=== PATIENT | male | born 1955 | race Two or more races ===

== ENCOUNTER 2016-09-01 12:37 | Inpatient (IN) | payer OTHER ==
[2016-09-01 17:49] VITALS: BMI 19.6
--- NOTE | 2016-09-01 18:57 | HP ---
COWS - Scale Resting Pulse: 0= [place] 80 or Below Sweatin=Flushed/Facial Moisture Restless Observation: 1= Difficult to Sit Still Pupil Size: 0= Normal to Room Light Bone or Joint Aches: 2= Severe Diffuse Aches Runny Nose/ Eye Tearin= Runny Nose/Eyes GI Upset > 30mins: 1= Stomach Cramp Tremor Observation: 2= Slight Tremor Visible Yawning Observation: 2= >3x During Session Anxiety or Irritability: 1=Feels Anxious/Irritable Goose Flesh Skin: 3=Piloerection COWS Score: 16 Admission ROS S - HPI Chief Complaint: WITHDRAWAL SYMPTOMS Allergies/Adverse Reactions: Allergies Allergy/AdvReac Type Severity Reaction Status Date / Time No Known Allergies Allergy Verified 09/01/16 18:05 History of Present Illness: 61 Y.O. MAN WITH A HISTORY OF HEROIN DEPENDENCE IS HERE SEEKING DETOX. HE REPORTS BEING CLEAN FOR 45 YEARS BUT RELAPSED 2 YEARS AGO. HE WAS LAST HERE FOR DETOX IN 2014. Exam Limitations: No Limitations - Ebola screening Have you traveled outside of the country in the last 21 days: No Have you had contact with anyone from an Ebola affected area: No Have you been sick,other than usual withdrawal symptoms: No Do you have a fever: No - Review of Systems Constitutional: Chills, Diaphoresis, Loss of Appetite, Malaise, Night Sweats, Changes in sleep EENT: reports: Blurred Vision, Tearing Respiratory: reports: Shortness of Breath Cardiac: reports: No Symptoms Reported GI: reports: Abdominal cramping : reports: No Symptoms Reported Musculoskeletal: reports: Joint Pain Integumentary: reports: No Symptoms Reported Neuro: reports: Numbness (TO RIGHT FINGER TIPS AND RIGHT FOOT) Endocrine: reports: No Symptoms Reported Hematology: reports: No Symptoms Reported Psychiatric: reports: Judgement Intact, Mood/Affect Appropiate, Anxious Other Systems: Reviewed and Negative Patient History - Patient Medical History Hx Anemia: No Hx Asthma: Yes Hx Chronic Obstructive Pulmonary Disease (COPD): No Hx Cancer: No Hx Cardiac Disorders: No Hx Congestive Heart Failure: No Hx Hypertension: No Hx Hypercholesterolemia: No Hx Pacemaker: No HX Cerebrovascular Accident: No Hx Seizures: No Hx Dementia: No Hx Diabetes: No Hx Gastrointestinal Disorders: No Hx Liver Disease: No Hx Genitourinary Disorders: No Hx Sexually Transmitted Disorders: Yes (Gonorrhea-treated) Hx Renal Disease (ESRD): No Hx Thyroid Disease: No Hx Human Immunodeficiency Virus (HIV): No Hx Hepatitis C: Yes (UNTREATED ) Hx Depression: No Hx Suicide Attempt: No Hx Bipolar Disorder: No Hx Schizophrenia: No - Patient Surgical History Past Surgical History: Yes Hx Neurologic Surgery: No Hx Cataract Extraction: No Hx Cardiac Surgery: No Hx Lung Surgery: No Hx Breast Surgery: No Hx Breast Biopsy: No Hx Abdominal Surgery: No Hx Appendectomy: No Hx Cholecystectomy: No Hx Genitourinary Surgery: No Hx Section: No Hx Orthopedic Surgery: Yes (Tibia fx repair in 2013; tonsillectomy at 6 y.o. ) Other Surgical History: Bilateral inguinal hernia repair at 18 y.o. Anesthesia Reaction: No - PPD History Previous Implant?: Yes Documented Results: Negative w/proof Implanted On Prior [facility] Admission?: Yes Date: 08/08/14 Results: 0 PPD to be Administered?: Yes - Reproductive History Patient is a Female of Child Bearing Age (11 -55 yrs old): No - Smoking Cessation Smoking history: Current every day smoker Have you smoked in the past 12 months: Yes Aproximately how many cigarettes per day: 10 Hx Chewing Tobacco Use: Yes Initiated information on smoking cessation: No 'Breaking Loose' booklet given: 09/01/16 - Substance & Tx. History Hx Alcohol Use: No Hx Substance Use: Yes Substance Use Type: Heroin Hx Substance Use Treatment: Yes (Last detox was here in 2014) - Substances Abused Heroin Route: Inhalation Frequency: Daily Amount used: 12 bags Age of first use: 12 Date of Last Use: 09/01/16 Family Disease History - Family Disease History Family Disease History: CA: Father ( ), Respiratory: Sister (asthma), Other: Son (Lupus ) Admission Physical Exam BHS - Vital Signs Vital Signs: Vital Signs - 24 hr 09/01/16 17:46 Temperature 97.5 F L Pulse Rate 67 Respiratory 18 Rate Blood Pressure 124/77 - Physical General Appearance: Yes: No Apparent Distress, Nourished, Appropriately Dressed HEENTM: Yes: Hearing grossly Normal, Normocephalic, Normal Voice Respiratory: Yes: Chest Non-Tender, Lungs Clear, Normal Breath Sounds, No Respiratory Distress, No Accessory Muscle Use Neck: Yes: No masses,lesions,Nodules, Trachea in good position Breast: Yes: Breast Exam Deferred Cardiology: Yes: Regular Rhythm, Regular Rate Abdominal: Yes: Non Tender, Flat, Soft Genitourinary: Yes: Other (NO COMPLAINTS REPORTED) Back: Yes: Normal Inspection Musculoskeletal: Yes: Back pain Extremities: Yes: Normal Inspection, Normal Range of Motion, Non-Tender Neurological: Yes: Fully Oriented, Alert, Normal Mood/Affect, Normal Response Integumentary: Yes: Normal Color, Dry, Warm Lymphatic: Yes: Within Normal Limits - Diagnostic (1) Asthma Current Visit: Yes Status: Chronic (2) Opioid dependence with withdrawal Current Visit: Yes Status: Chronic (3) Hepatitis C Current Visit: Yes Status: Chronic (4) BPH (benign prostatic hyperplasia) Current Visit: Yes Status: Chronic (5) Sciatica Current Visit: Yes Status: Chronic Cleared for Admission [facility] - Detox or Rehab [facility] Level of Care: Medically Managed Detox Regimen/Protocol: Methadone [facility] Breath Alcohol Content Breath Alcohol Content: 0 Urine Drug Screen - Results Drug Screen Negative: No Urine Drug Screen Results: THC-Marijuana, LUCY-Cocaine, OPI-Opiates
[2016-09-01] MEDS ORDERED: MAGNESIUM CITRATE 300 ML BOTTLE PO PRN (19:09)
[2016-09-01] MEDS ORDERED: MAG HYDROX/AL HYDROX/SIMETH 30 ML UNIT-DOSE CUP PO PRN (19:09)
[2016-09-01] MEDS ORDERED: hydrOXYzine PAMOATE 50 MG CAPSULE (FP) PO PRN (19:09)
[2016-09-01] MEDS ORDERED: MENTHOL/PHENOL 1 EACH UD MM PRN (19:09)
[2016-09-01] MEDS ORDERED: guaiFENesin/D-METHORPHAN HB 10 ML UNIT-DOSE CUPS PO PRN (19:09)
[2016-09-01] MEDS ORDERED: NICOTINE POLACRILEX 2 MG GUM BC PRN (19:09)
[2016-09-01] MEDS ORDERED: LOPERAMIDE HCL 2 MG CAPSULE PO PRN (19:09)
[2016-09-01] MEDS ORDERED: P-EPHED 60MG/TRIPROLIDI 2.5MG TABLET PO PRN (19:09)
[2016-09-01] MEDS ORDERED: MAGNESIUM HYDROX 2400MG/30ML ORAL SUSPENSION 30 ML CUP PO PRN (19:09)
[2016-09-01] MEDS ORDERED: METHADONE HCL 10 MG TABLET (FOR DETOX USE ONLY) PO ONE ×2 (19:09→23:00)
[2016-09-01] MEDS ORDERED: cloNIDine HCL 0.1 MG TABLET PO PRN (19:13)
[2016-09-01] MEDS ORDERED: ALBUTEROL SO4 2.5/IPRATROPIUM 0.5 INH SOL 3 ML VIAL.NEB. NEB PRN (19:14)
[2016-09-01] MEDS: diazePAM 5 MG TABLET PO PRN (20:14)
[2016-09-01] MEDS: THIAMINE HCL 100 MG TABLET (FP) PO SCH (22:14)
[2016-09-01] MEDS: diphenhydrAMINE HCL 50 MG CAPSULE PO PRN (22:14)
[2016-09-01] MEDS: MONTELUKAST NA 10 MG TABLET PO SCH (22:14)
[2016-09-02] MEDS: diazePAM 5 MG TABLET PO PRN ×4 (05:13→22:18)
[2016-09-02] MEDS ORDERED: ALBUTEROL SO4 2.5/IPRATROPIUM 0.5 INH SOL 3 ML VIAL.NEB. NEB SCH (08:45)
--- NOTE | 2016-09-02 09:38 | PN ---
BHS COWS - Scale Resting Pulse: 0= [place] 80 or Below Sweatin= Chills/Flushing Restless Observation: 3= Extraneous Movement Pupil Size: 0= Normal to Room Light Bone or Joint Aches: 4=Acute Joint/Muscle Pain Runny Nose/ Eye Tearin= Nasal Congestion GI Upset > 30mins: 1= Stomach Cramp Tremor Observation of Outstretched Hands: 1= Tremor [place], Not Seen Yawning Observation: 2= >3x During Session Anxiety or Irritability: 2=Irritable/Anxious Goose Flesh Skin: 0=Smooth Skin COWS Score: 15 BHS Progress Note (SOAP) Subjective: ANXIETY,IRRITABILITY,SOB/WHEEZE. Objective: 09/02/16 09:41 Vital Signs Temperature 97.3 F L 09/02/16 05:51 Pulse Rate 66 09/02/16 05:51 Respiratory Rate 18 09/02/16 05:51 Blood Pressure 95/62 09/02/16 05:51 O2 Sat by Pulse Oximetry (%) LABS PENDING LUNGS; BILATERAL WHEEZE WITH VERY MILD RHONCHI. Assessment: 09/02/16 09:42 WITHDRAWAL SX ASTHMA EXACERBATION Plan: WITHDRAWAL SX DUONEB/SYMBICORT TX DIRECTED ALBUTEROL INHALER PRN
[2016-09-02] MEDS: BUDESONIDE/FORMETEROL FUMARATE 160/4.5 mcg INHALER IH SCH ×2 (09:55→22:18)
[2016-09-02] MEDS: NICOTINE 7 MG/24 HOURS TOPICAL PATCH TD SCH (09:56)
[2016-09-02] MEDS: ASPIRIN COATED 81 MG TABLET.EC PO SCH (09:56)
[2016-09-02] MEDS: PRENATAL VITAMINS W/ FOLIC ACID TABLET (FP) PO SCH (09:56)
[2016-09-02] MEDS ORDERED: METHADONE HCL 10 MG TABLET (FOR DETOX USE ONLY) PO ONE (10:00)
[2016-09-02] MEDS ORDERED: PATIENT'S OWN MEDICATION (NON-FORMULARY) (Fluticasone Propionate [Flovent Hfa] 110 MCG) IH SCH (10:00)
[2016-09-02 10:25] LABS: MCH 29.5 pg (25.7-33.7); MEAN CELL VOLUME 89.5 fl (80-96); MEAN PLT VOLUME 8.4 fl (7.5-11.1); PLATELET COUNT 212 K/MM3 (134-434); WHITE BLOOD COUNT 5.4 K/mm3 (4.0-10.0)
[2016-09-02 10:29] LABS: ALBUMIN 3.4 g/dl (3.4-5.0); ANION GAP 6 (8-16); BILIRUBIN,TOTAL 0.4 mg/dL (0.2-1.0); CO2 27 mmol/L (21-32); CREATININE 0.8 mg/dL (0.7-1.3); GLUCOSE,RANDOM 88 mg/dL (74-106); SGOT/AST 98 U/L (15-37); SGPT/ALT 94 U/L (12-78)
[2016-09-02 10:30] LABS: ALK PHOS 79 U/L (45-117)
--- NOTE | 2016-09-02 11:10 | EKG ---
Test Reason : Blood Pressure : / mmHG Vent. Rate : 065 BPM Atrial Rate : 065 BPM P-R Int : 158 ms QRS Dur : 090 ms QT Int : 416 ms P-R-T Axes : 072 078 075 degrees QTc Int : 432 ms NORMAL SINUS RHYTHM POSSIBLE LEFT ATRIAL ENLARGEMENT BORDERLINE ECG NO PREVIOUS ECGS AVAILABLE Confirmed by CALLI GARCIA, ANTONIO ([id number]) on 09/02/2016 11:09:41 AM Referred By: Confirmed By:ANTONIO MCCURDY MD
--- NOTE | 2016-09-02 11:21 | CONSULT ---
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 Substance Abuse History: Patient admits to relapsing into heroin abuse two years ago after 45 years of sobriety (started at age 12 and stopped at 15 when he fathered his first child).Uses 12 bags daily (snorting).Smokes 1/2 pack of cigarettes daily.Used substances on 09/01/16. Medical History: Remarkable for a history of gonorrhea,hepatitis C (treated), benign prostatic hyperplasia,colitis and bronchial asthma.Noted history of orthosurgery for fracture of tibia (2013),tonsillectomy and bilateral inguinal herniorraphy (age 18). Psychiatric History: Patient denies. Physical/Sexual Abuse/Trauma History: Patient denies. Additional Comment: Urine Drug Screen Results: THC-Marijuana, LUCY-Cocaine, OPI- Opiates.Noted from [facility] report. Mental Status Exam - Mental Status Exam Alert and Oriented to: Time, Place Cognitive Function: Good Patient Appearance: Well Groomed Mood: Hopeful, Euthymic Affect: Appropriate, Normal Range Patient Behavior: Appropriate (pleasant), Cooperative Speech Pattern: Clear, Appropriate Voice Loudness: Normal Thought Process: Intact, Goal Oriented Thought Disorder: Not Present Hallucinations: Denies Suicidal Ideation: Denies Homicidal Ideation: Denies Insight/Judgement: Poor Sleep: Poorly, Difficulty falling asleep Appetite: Good Muscle strength/Tone: Normal Gait/Station: Normal Psychiatric Findings - Problem List ([place] 1, 2,3) (1) Opioid dependence with withdrawal Current Visit: Yes Status: Acute (2) Marihuana abuse Current Visit: Yes Status: Acute (3) Nicotine dependence Current Visit: Yes Status: Acute (4) Asthma Current Visit: Yes Status: Chronic (5) BPH (benign prostatic hyperplasia) Current Visit: Yes Status: Chronic (6) Hepatitis C Current Visit: Yes Status: Chronic (7) Sciatica Current Visit: Yes Status: Chronic (8) Insomnia Current Visit: Yes Status: Acute - Initial Treatment Plan Initial Treatment Plan: Psychoeducation is well received by patient in this session.[facility] report reviewed.Detoxification in progress.Insomnia is addressed, with patient's consent,with zolpidem 10 mg po hs (no script will be issued at discharge).Patient made aware of the potential for parasomnias.Observation.
[2016-09-02] MEDS: ALBUTEROL SO4 2.5/IPRATROPIUM 0.5 INH SOL 3 ML VIAL.NEB. NEB SCH ×4 (15:14→22:51)
[2016-09-02 16:39] LABS: HIV 1 & 2 AB NEGATIVE; HIV 1 AGp24 NEGATIVE
[2016-09-02] MEDS: ALBUTEROL SO4 6.7 GM HFA INHALER IH PRN (17:28)
[2016-09-02] MEDS: diphenhydrAMINE HCL 50 MG CAPSULE PO PRN (22:18)
[2016-09-02] MEDS: THIAMINE HCL 100 MG TABLET (FP) PO SCH (22:18)
[2016-09-02] MEDS: MONTELUKAST NA 10 MG TABLET PO SCH (22:18)
[2016-09-02 23:22] LABS: URINE APPEARANCE CLEAR; URINE BILIRUBIN NEGATIVE (NEGATIVE); URINE BLOOD NEGATIVE (NEGATIVE); URINE COLOR AMBER; URINE GLUCOSE (UA) NEGATIVE (NEGATIVE); URINE KETONE TRACE (NEGATIVE); URINE LEUK ESTERASE NEGATIVE (NEGATIVE); URINE NITRITE NEGATIVE (NEGATIVE); URINE PROTEIN NEGATIVE (NEGATIVE); URINE UROBILINOGEN 4.0 E.U/dl mg/dL (0.2-1.0)
[2016-09-03] MEDS: IBUPROFEN 400 MG TABLET (FP) PO PRN ×2 (05:49→22:24)
[2016-09-03] MEDS: diazePAM 5 MG TABLET PO PRN ×2 (05:50→22:25)
[2016-09-03] MEDS ORDERED: METHADONE HCL 5 MG TABLET (FOR DETOX USE ONLY) PO ONE (10:00)
[2016-09-03] MEDS: ALBUTEROL SO4 6.7 GM HFA INHALER IH PRN ×2 (10:21→22:20)
[2016-09-03] MEDS: PRENATAL VITAMINS W/ FOLIC ACID TABLET (FP) PO SCH (10:21)
[2016-09-03] MEDS: ASPIRIN COATED 81 MG TABLET.EC PO SCH (10:21)
[2016-09-03] MEDS: BUDESONIDE/FORMETEROL FUMARATE 160/4.5 mcg INHALER IH SCH ×2 (10:22→22:23)
[2016-09-03] MEDS: NICOTINE 7 MG/24 HOURS TOPICAL PATCH TD SCH (10:22)
[2016-09-03] MEDS: ALBUTEROL SO4 2.5/IPRATROPIUM 0.5 INH SOL 3 ML VIAL.NEB. NEB SCH ×5 (10:22→23:05)
[2016-09-03] MEDS: ACETAMINOPHEN 325 MG TABLET (FP) PO PRN (10:24)
[2016-09-03] MEDS ORDERED: LIDOCAINE 5% TOPICAL PATCH TP ONE (10:56)
[2016-09-03] MEDS ORDERED: CYCLOBENZAPRINE HCL 10 MG TABLET (FP) PO PRN (10:58)
--- NOTE | 2016-09-03 10:59 | PN ---
BHS COWS - Scale Resting Pulse: 0= [place] 80 or Below Sweatin= Chills/Flushing Restless Observation: 3= Extraneous Movement Pupil Size: 0= Normal to Room Light Bone or Joint Aches: 4=Acute Joint/Muscle Pain Runny Nose/ Eye Tearin= Nasal Congestion GI Upset > 30mins: 1= Stomach Cramp Tremor Observation of Outstretched Hands: 2= Slight Tremor Visible Yawning Observation: 2= >3x During Session Anxiety or Irritability: 2=Irritable/Anxious Goose Flesh Skin: 0=Smooth Skin COWS Score: 16 BHS Progress Note (SOAP) Subjective: ANXIETY,SWEATS, HX CHRONIC LOWER BACK PAIN, INTERMITTENT SLEEP. Objective: 09/03/16 10:50 Vital Signs Temperature 96.7 F L 09/03/16 09:49 Pulse Rate 65 09/03/16 09:49 Respiratory Rate 18 09/03/16 09:49 Blood Pressure 135/78 09/03/16 09:49 O2 Sat by Pulse Oximetry (%) Laboratory Last Values WBC 5.4 K/mm3 (4.0-10.0) D 09/02/16 06:30 RBC 4.89 M/mm3 (4.00-5.60) 09/02/16 06:30 Hgb 14.4 GM/dL (11.7-16.9) 09/02/16 06:30 Hct 43.7 % (35.4-49) 09/02/16 06:30 MCV 89.5 fl (80-96) 09/02/16 06:30 MCH 29.5 pg (25.7-33.7) 09/02/16 06:30 MCHC 33.0 g/dl (32.0-35.9) 09/02/16 06:30 RDW 14.0 % (11.9-15.9) 09/02/16 06:30 Plt Count 212 K/MM3 (134-434) 09/02/16 06:30 MPV 8.4 fl (7.5-11.1) 09/02/16 06:30 Sodium 139 mmol/L (136-145) 09/02/16 06:30 Potassium 4.1 mmol/L (3.5-5.1) 09/02/16 06:30 Chloride 106 mmol/L (98-107) 09/02/16 06:30 Carbon Dioxide 27 mmol/L (21-32) 09/02/16 06:30 Anion Gap 6 (8-16) L 09/02/16 06:30 BUN 15 mg/dL (7-18) 09/02/16 06:30 Creatinine 0.8 mg/dL (0.7-1.3) 09/02/16 06:30 Creat Clearance w eGFR > 60 (>60) 09/02/16 06:30 Random Glucose 88 mg/dL (74-106) D 09/02/16 06:30 Calcium 9.0 mg/dL (8.5-10.1) 09/02/16 06:30 Total Bilirubin 0.4 mg/dL (0.2-1.0) D 09/02/16 06:30 AST 98 U/L (15-37) H D 09/02/16 06:30 ALT 94 U/L (12-78) H D 09/02/16 06:30 Alkaline Phosphatase 79 U/L (45-117) 09/02/16 06:30 Total Protein 7.0 g/dl (6.4-8.2) 09/02/16 06:30 Albumin 3.4 g/dl (3.4-5.0) 09/02/16 06:30 Urine Color Poly 09/02/16 22:00 Urine Appearance Clear 09/02/16 22:00 Urine pH 8.0 (5.0-8.0) D 09/02/16 22:00 Ur Specific [place] 1.015 (1.005-1.025) 09/02/16 22:00 Urine Protein Negative (NEGATIVE) 09/02/16 22:00 Urine Glucose (UA) Negative (NEGATIVE) 09/02/16 22:00 Urine Ketones Trace (NEGATIVE) H 09/02/16 22:00 Urine Blood Negative (NEGATIVE) 09/02/16 22:00 Urine Nitrite Negative (NEGATIVE) 09/02/16 22:00 Urine Bilirubin Negative (NEGATIVE) 09/02/16 22:00 Urine Urobilinogen 4.0 e.u/dl mg/dL (0.2-1.0) 09/02/16 22:00 Ur Leukocyte Esterase Negative (NEGATIVE) 09/02/16 22:00 RPR Titer Nonreactive (NONREACTIVE) 09/02/16 06:30 HIV 1&2 Antibody Screen Negative 09/02/16 11:00 HIV P24 Antigen Negative 09/02/16 11:00 Assessment: 09/03/16 10:51 WITHDRAWAL SX Plan: CONTINUE DETOX FLEXERIL DIRECTED NAPROSYN DIRECTED
[2016-09-03] MEDS ORDERED: LIDOCAINE 5% TOPICAL PATCH TP SCH (11:00)
[2016-09-03] MEDS ORDERED: LIDOCAINE PATCH REMOVAL MC SCH ×2 (22:00)
[2016-09-03] MEDS: THIAMINE HCL 100 MG TABLET (FP) PO SCH (22:20)
[2016-09-03] MEDS: MONTELUKAST NA 10 MG TABLET PO SCH (22:21)
[2016-09-03] MEDS: LIDOCAINE PATCH REMOVAL MC SCH (23:53)
[2016-09-04] MEDS: IBUPROFEN 400 MG TABLET (FP) PO PRN (05:32)
[2016-09-04] MEDS: diazePAM 5 MG TABLET PO PRN (05:32)
[2016-09-04] MEDS ORDERED: ONDANSETRON *ODT* 4 MG TABLET SL PRN (06:50)
[2016-09-04] MEDS ORDERED: TRIMETHOBENZAMIDE HCL 200MG/2ML INJ IM PRN (07:26)
[2016-09-04] MEDS: ALBUTEROL SO4 2.5/IPRATROPIUM 0.5 INH SOL 3 ML VIAL.NEB. NEB SCH ×6 (08:05→23:44)
[2016-09-04] MEDS ORDERED: METHADONE HCL 5 MG TABLET (FOR DETOX USE ONLY) PO ONE (10:00)
[2016-09-04] MEDS ORDERED: LIDOCAINE 5% TOPICAL PATCH TP SCH (10:00)
[2016-09-04] MEDS ORDERED: METHADONE DETOX 10 MG/1 ML [20ML VIAL] IM ONE (10:14)
[2016-09-04] MEDS: ASPIRIN COATED 81 MG TABLET.EC PO SCH (10:58)
[2016-09-04] MEDS: BUDESONIDE/FORMETEROL FUMARATE 160/4.5 mcg INHALER IH SCH ×2 (10:58→23:48)
[2016-09-04] MEDS: PRENATAL VITAMINS W/ FOLIC ACID TABLET (FP) PO SCH (10:58)
[2016-09-04] MEDS: NICOTINE 7 MG/24 HOURS TOPICAL PATCH TD SCH (10:59)
[2016-09-04] MEDS ORDERED: diazePAM CARPU-JECT 10 MG/2 ML DISP.SYRIN IM ONE (11:16)
--- NOTE | 2016-09-04 11:20 | PN ---
S Progress Note (SOAP) Subjective: PT C/O SEVERE ABDOMINAL PAIN/CRAMPS, NAUSEA WITH VOMITING SINCE LAST NIGHT. NO C /O DIARRHEA. TIGAN GIVEN WITH MINIMAL RELIEF. STATES HX COLITIS AND FLARES ON/ OFF. Objective: 09/04/16 11:18 Vital Signs 09/04/16 09/04/16 09/04/16 03:30 06:58 09:34 Temperature 97.0 F L 97.7 F Pulse Rate 56 L 55 L Respiratory 18 18 18 Rate Blood Pressure 133/82 172/101 Laboratory Last Values WBC 5.4 K/mm3 (4.0-10.0) D 09/02/16 06:30 RBC 4.89 M/mm3 (4.00-5.60) 09/02/16 06:30 Hgb 14.4 GM/dL (11.7-16.9) 09/02/16 06:30 Hct 43.7 % (35.4-49) 09/02/16 06:30 MCV 89.5 fl (80-96) 09/02/16 06:30 MCH 29.5 pg (25.7-33.7) 09/02/16 06:30 MCHC 33.0 g/dl (32.0-35.9) 09/02/16 06:30 RDW 14.0 % (11.9-15.9) 09/02/16 06:30 Plt Count 212 K/MM3 (134-434) 09/02/16 06:30 MPV 8.4 fl (7.5-11.1) 09/02/16 06:30 Sodium 139 mmol/L (136-145) 09/02/16 06:30 Potassium 4.1 mmol/L (3.5-5.1) 09/02/16 06:30 Chloride 106 mmol/L (98-107) 09/02/16 06:30 Carbon Dioxide 27 mmol/L (21-32) 09/02/16 06:30 Anion Gap 6 (8-16) L 09/02/16 06:30 BUN 15 mg/dL (7-18) 09/02/16 06:30 Creatinine 0.8 mg/dL (0.7-1.3) 09/02/16 06:30 Creat Clearance w eGFR > 60 (>60) 09/02/16 06:30 Random Glucose 88 mg/dL (74-106) D 09/02/16 06:30 Calcium 9.0 mg/dL (8.5-10.1) 09/02/16 06:30 Total Bilirubin 0.4 mg/dL (0.2-1.0) D 09/02/16 06:30 AST 98 U/L (15-37) H D 09/02/16 06:30 ALT 94 U/L (12-78) H D 09/02/16 06:30 Alkaline Phosphatase 79 U/L (45-117) 09/02/16 06:30 Total Protein 7.0 g/dl (6.4-8.2) 09/02/16 06:30 Albumin 3.4 g/dl (3.4-5.0) 09/02/16 06:30 Urine Color Poly 09/02/16 22:00 Urine Appearance Clear 09/02/16 22:00 Urine pH 8.0 (5.0-8.0) D 09/02/16 22:00 Ur Specific [place] 1.015 (1.005-1.025) 09/02/16 22:00 Urine Protein Negative (NEGATIVE) 09/02/16 22:00 Urine Glucose (UA) Negative (NEGATIVE) 09/02/16 22:00 Urine Ketones Trace (NEGATIVE) H 09/02/16 22:00 Urine Blood Negative (NEGATIVE) 09/02/16 22:00 Urine Nitrite Negative (NEGATIVE) 09/02/16 22:00 Urine Bilirubin Negative (NEGATIVE) 09/02/16 22:00 Urine Urobilinogen 4.0 e.u/dl mg/dL (0.2-1.0) 09/02/16 22:00 Ur Leukocyte Esterase Negative (NEGATIVE) 09/02/16 22:00 RPR Titer Nonreactive (NONREACTIVE) 09/02/16 06:30 HIV 1&2 Antibody Screen Negative 09/02/16 11:00 HIV P24 Antigen Negative 09/02/16 11:00 Assessment: 09/04/16 11:19 WITHDRAWAL SX ABDOMINAL PAIN Plan: CONTINUE DETOX TIGAN IM DIRECTED METHADONE AND VALIUM IM DIRECTED PO FLUIDS TOLERATED. WILL TRANSFER TO [facility] ER IF NOT GETTING BETTER.
[2016-09-04] MEDS: ALBUTEROL SO4 6.7 GM HFA INHALER IH PRN (11:45)
--- NOTE | 2016-09-04 14:40 | PN ---
Abdirizak Progress Note Note: CALLED TO RE-EVALUATE THIS 61 Y/O MALE DETOXING FROM HEROIN IN HIS 3RD DAY OF DETOX METHADONE TAPER WITH PERSISTENT C/O SEVERE ABDOMINAL PAIN/CRAMPS, NAUSEA AND VOMITING, RESTLESSNESS AND UNABLE TO REST IN BED OR STAND UPRIGHT.. RECEIVED TIGAN INJECTION WITH MINIMAL RELIEF. POOR PO FOOD/FLUID INTAKE. ALERT O X 3. MOANING ON/OFF. PT STATES HX COLITIS AND ON/OFF HOSPITAL VISIT FOR FLARE UP. ABDOMEN: SOFT,TENDER TO PALPATE AT EPIGASTRIC AREA. BS HYPOACTIVE. Vital Signs Temperature 97.0 F L 09/04/16 15:08 Pulse Rate 60 09/04/16 15:08 Respiratory Rate 20 09/04/16 15:08 Blood Pressure 159/96 09/04/16 15:08 O2 Sat by Pulse Oximetry (%) LUNGS:CLEAR TO A/P IMPRESSION:ABDOMINAL PAIN PLAN:TRANSFER TO [facility] ER VIA AMBULANCE FOR EVALUATION AND POSSIBLE TX. SPOKE WITH DR DUBOIS AT THE ER WHO WILL RECEIVE THE PATIENT. MAY RETURN TO [facility] IF STABLE TO CONTINUE DETOX.
[2016-09-04] MEDS: THIAMINE HCL 100 MG TABLET (FP) PO SCH (23:43)
[2016-09-04] MEDS: MONTELUKAST NA 10 MG TABLET PO SCH (23:43)
[2016-09-04] MEDS: LIDOCAINE PATCH REMOVAL MC SCH (23:43)
[2016-09-04] MEDS: diphenhydrAMINE HCL 50 MG CAPSULE PO PRN (23:46)
[2016-09-05] MEDS ORDERED: METHADONE HCL 10 MG TABLET (FOR DETOX USE ONLY) PO ONE (10:00)
[2016-09-05] MEDS ORDERED: LEVOFLOXACIN 500 MG TABLET (FP) PO SCH (10:00)
[2016-09-05] MEDS ORDERED: metroNIDAZOLE 250 MG TABLET PO SCH (10:00)
[2016-09-05] MEDS: BUDESONIDE/FORMETEROL FUMARATE 160/4.5 mcg INHALER IH SCH ×2 (10:13→23:27)
[2016-09-05] MEDS: metroNIDAZOLE 250 MG TABLET PO SCH ×2 (10:14→22:28)
[2016-09-05] MEDS: ASPIRIN COATED 81 MG TABLET.EC PO SCH (10:14)
[2016-09-05] MEDS: NICOTINE 7 MG/24 HOURS TOPICAL PATCH TD SCH (10:14)
[2016-09-05] MEDS: PRENATAL VITAMINS W/ FOLIC ACID TABLET (FP) PO SCH (10:14)
[2016-09-05] MEDS: ALBUTEROL SO4 2.5/IPRATROPIUM 0.5 INH SOL 3 ML VIAL.NEB. NEB SCH ×5 (10:14→23:16)
[2016-09-05] MEDS: TRIMETHOBENZAMIDE HCL 200MG/2ML INJ IM PRN ×2 (10:14→23:27)
[2016-09-05] MEDS ORDERED: TRIMETHOBENZAMIDE HCL 200MG/2ML INJ IM ONE (14:53)
--- NOTE | 2016-09-05 15:16 | PN ---
[facility] Progress Note (SOAP) Subjective: Interrupted sleep, Tremors. Abdominal Pain, Vomiting due to Colitis persist, but with slight improvement compared to yesterday. Patient denies any change in bowel movement (frequency, consistency). Objective: PT. A & O X 3, OBSERVED AMBULATING ON UNIT. PT. DENIES CHEST PAIN. 09/05/16 15:11 Vital Signs Temperature 97.6 F 09/05/16 10:55 Pulse Rate 54 L 09/05/16 10:55 Respiratory Rate 18 09/05/16 10:55 Blood Pressure 178/88 09/05/16 10:55 O2 Sat by Pulse Oximetry (%) Laboratory Tests 09/02/16 09/02/16 09/02/16 06:30 06:30 06:30 WBC 5.4 D RBC 4.89 Hgb 14.4 Hct 43.7 MCV 89.5 MCH 29.5 MCHC 33.0 RDW 14.0 Plt Count 212 MPV 8.4 Sodium 139 Potassium 4.1 Chloride 106 Carbon Dioxide 27 Anion Gap 6 L BUN 15 Creatinine 0.8 Creat Clearance w eGFR > 60 Random Glucose 88 D Calcium 9.0 Total Bilirubin 0.4 D AST 98 H D ALT 94 H D Alkaline Phosphatase 79 Total Protein 7.0 Albumin 3.4 Urine Color Urine Appearance Urine pH Ur Specific [place] Urine Protein Urine Glucose (UA) Urine Ketones Urine Blood Urine Nitrite Urine Bilirubin Urine Urobilinogen Ur Leukocyte Esterase RPR Titer Nonreactive HIV 1&2 Antibody Screen HIV P24 Antigen 09/02/16 09/02/16 11:00 22:00 WBC RBC Hgb Hct MCV MCH MCHC RDW Plt Count MPV Sodium Potassium Chloride Carbon Dioxide Anion Gap BUN Creatinine Creat Clearance w eGFR Random Glucose Calcium Total Bilirubin AST ALT Alkaline Phosphatase Total Protein Albumin Urine Color Poly Urine Appearance Clear Urine pH 8.0 D Ur Specific [place] 1.015 Urine Protein Negative Urine Glucose (UA) Negative Urine Ketones Trace H Urine Blood Negative Urine Nitrite Negative Urine Bilirubin Negative Urine Urobilinogen 4.0 e.u/dl Ur Leukocyte Esterase Negative RPR Titer HIV 1&2 Antibody Screen Negative HIV P24 Antigen Negative LABS NOTED. Assessment: 09/05/16 15:12 WITHDRAWAL SYMPTOMS. Plan: CONTINUE DETOX. PRN TIGAN IM FOR NAUSEA / VOMITING. PATIENT REPORTS TEMPORARY IMPROVEMENT IN NAUSEA / VOMITING AFTER FIRST DOSE. STAT DOSE OF TIGAN IM ALSO ORDERED. PRN TYLENOL FOR PAIN. ENSURE TO HELP INCREASE CALORIC INTAKE. ENCOURAGED PATIENT TO ATTEMPT TO CONSUME FOOD AND FLUIDS IN SMALL AMOUNTS TOLERATED FOR TIME BEING UNTIL PO LEVAQUIN AND FLAGYL ARE ABLE TO TAKE EFFECT.
[2016-09-05] MEDS: ACETAMINOPHEN 325 MG TABLET (FP) PO PRN (15:36)
[2016-09-05] MEDS: THIAMINE HCL 100 MG TABLET (FP) PO SCH (22:27)
[2016-09-05] MEDS: MONTELUKAST NA 10 MG TABLET PO SCH (22:27)
[2016-09-05] MEDS: LIDOCAINE PATCH REMOVAL MC SCH (23:17)
[2016-09-06] MEDS: ALBUTEROL SO4 2.5/IPRATROPIUM 0.5 INH SOL 3 ML VIAL.NEB. NEB SCH ×2 (00:30→08:31)
[2016-09-06] MEDS: TRIMETHOBENZAMIDE HCL 200MG/2ML INJ IM PRN (04:57)
[2016-09-06] MEDS ORDERED: METHADONE HCL 5 MG TABLET (FOR DETOX USE ONLY) PO ONE (06:00)
[2016-09-06] MEDS: ASPIRIN COATED 81 MG TABLET.EC PO SCH (06:56)
[2016-09-06] MEDS ORDERED: ASPIRIN COATED 81 MG TABLET.EC PO SCH (08:00)
[2016-09-06 11:06] VITALS: BP 109/68; PULSE 80; TEMP 97.4
--- NOTE | 2016-09-06 12:34 | DS ---
[facility] Detox Discharge Summary Admission Date: 09/01/16 Discharge Date: 09/06/16 - History Present History: Opioid Dependence Additional Comments: Patient discharged from detox. Sent to [facility] [address] in the [place] via [facility] for management of acute colitis exacerbation (patient requested to go to [facility] instead of [facility]. Pertinent Past History: Asthma Hepatitis C Ulcerative colitis BPH - Physical Exam Results Vital Signs: Vital Signs Temperature 97.4 F L 09/06/16 10:00 Pulse Rate 80 09/06/16 10:00 Respiratory Rate 20 09/06/16 10:00 Blood Pressure 109/68 09/06/16 10:00 O2 Sat by Pulse Oximetry (%) Pertinent Admission Physical Exam Findings: Withdrawal symptoms C/O persistent vomiting x 3 days (unable to keep any food/liquid down) due to ulcerative colitis exacerbation. Patient stated he has flareup once per year for the past 3 years. He denies any withdrawal symptoms and requesting to go to [facility] on [address], [facility] in the [place] instead of [facility] stating that he was transferred to [facility] and was given Rx for antibiotic ( levaquin 500mg PO daily and flagyl 500mg PO daily) instead of being admitted. Patient stated he has been going to [facility] for the past 10 years and they have his record and feels more comfortable going there. Laboratory Tests 09/02/16 09/02/16 09/02/16 06:30 06:30 06:30 WBC 5.4 D RBC 4.89 Hgb 14.4 Hct 43.7 MCV 89.5 MCH 29.5 MCHC 33.0 RDW 14.0 Plt Count 212 MPV 8.4 Sodium 139 Potassium 4.1 Chloride 106 Carbon Dioxide 27 Anion Gap 6 L BUN 15 Creatinine 0.8 Creat Clearance w eGFR > 60 Random Glucose 88 D Calcium 9.0 Total Bilirubin 0.4 D AST 98 H D ALT 94 H D Alkaline Phosphatase 79 Total Protein 7.0 Albumin 3.4 Urine Color Urine Appearance Urine pH Ur Specific [place] Urine Protein Urine Glucose (UA) Urine Ketones Urine Blood Urine Nitrite Urine Bilirubin Urine Urobilinogen Ur Leukocyte Esterase RPR Titer Nonreactive HIV 1&2 Antibody Screen HIV P24 Antigen 09/02/16 09/02/16 11:00 22:00 WBC RBC Hgb Hct MCV MCH MCHC RDW Plt Count MPV Sodium Potassium Chloride Carbon Dioxide Anion Gap BUN Creatinine Creat Clearance w eGFR Random Glucose Calcium Total Bilirubin AST ALT Alkaline Phosphatase Total Protein Albumin Urine Color Poly Urine Appearance Clear Urine pH 8.0 D Ur Specific [place] 1.015 Urine Protein Negative Urine Glucose (UA) Negative Urine Ketones Trace H Urine Blood Negative Urine Nitrite Negative Urine Bilirubin Negative Urine Urobilinogen 4.0 e.u/dl Ur Leukocyte Esterase Negative RPR Titer HIV 1&2 Antibody Screen Negative HIV P24 Antigen Negative Labs noted - Treatment Hospital Course: Detox Protocol Followed, Detoxed Safely, Responded well, Discharged Condition Good - Medication Discharge Medications: Ambulatory Orders Albuterol Sulfate Inhaler - [Ventolin HFA Inhaler -] 2 inh PO Q4H PRN 08/06/14 Budesonide/Formeterol Fumarate [SYMBICORT 160/4.5mcg -] 1 inh PO BID 08/06/14 Aspirin [ASA -] 81 mg PO DAILY 09/01/16 Levofloxacin [Levaquin] 500 mg PO DAILY #14 tablet 09/04/16 Metronidazole [Flagyl -] 500 mg PO DAILY #14 tablet 09/04/16 - Diagnosis (1) Colitis Status: Acute (2) Nicotine dependence Status: Chronic (3) Opioid dependence with withdrawal Status: Acute (4) Asthma Status: Chronic (5) BPH (benign prostatic hyperplasia) Status: Chronic (6) Hepatitis C Status: Chronic - AMA Did Patient Leave Against Medical Advice: No
== END 2016-09-06 09:30 | disposition short-term general hospital (02) | DRG 897 ==
LOC: YASAS 12:37 → Y3N 18:15
PROVIDERS: ADMIT Internal Medicine Addiction Medicine; ATTEND Internal Medicine Addiction Medicine
PROC: HZ2ZZZZ Detoxification Services for Substance Abuse Treatment (ICD-10-PCS; principal; 2016-09-06)
DX: F11.23 Opioid dependence with withdrawal (principal); F12.10 Cannabis abuse, uncomplicated; F17.210 Nicotine dependence, cigarettes, uncomplicated; B18.2 Chronic viral hepatitis C; N40.0 Benign prostatic hyperplasia without lower urinary tract symptoms; K52.9 Noninfective gastroenteritis and colitis, unspecified
CPT/HCPCS: 36415; 80053; 81003; 85027; 86593; 87389; 93005; 93010; 94640

== ENCOUNTER 2016-09-04 15:58 | Emergency (ER) | payer OTHER ==
[2016-09-04] MEDS ORDERED: morphine CARPU-JECT 4 MG/1 ML DISP.SYRIN IVPUSH ONE (16:20)
[2016-09-04] MEDS ORDERED: SODIUM CHLORIDE 1,000 ML IV STA (16:20)
[2016-09-04] MEDS ORDERED: ONDANSETRON 4 MG/2 ML VIAL IVPUSH ONE (16:20)
--- NOTE | 2016-09-04 16:24 | PDOC ---
History of Present Illness - General History Source: Patient - History of Present Illness Timing/Duration: reports: constant Quality: reports: severe Abdominal Pain Onset Location: reports: generalized abdomen <Vy Westfall - Last Filed: 09/05/16 18:35> <Gregoria Westbrook - Last Filed: 09/08/16 15:43> - General Chief Complaint: Pain Stated Complaint: Abdominal pain, N/V/D Time Seen by Provider: 09/04/16 16:02 Past History - Past Medical History Anemia: No Asthma: Yes Cancer: No Cardiac Disorders: No CVA: No COPD: No CHF: No Dementia: No Diabetes: No GI Disorders: Yes (colitis) Disorders: No HTN: No Hypercholesterolemia: No Kidney Stones: No Liver Disease: No Suicide Attempt (Hx): No Seizures: No Thyroid Disease: No Other medical history: h/o heroin abuse - Surgical History Abdominal Surgery: No Appendectomy: No Cardiac Surgery: No Cholecystectomy: No Lung Surgery: No Neurologic Surgery: No Orthopedic Surgery: Yes (Tibia fx repair in 2013; tonsillectomy at 6 y.o. ) - Reproductive History Testicular Surgery: No - Psycho/Social/Smoking Cessation Hx Anxiety: No Suicidal Ideation: No Smoking History: Current some day smoker Have you smoked in the past 12 months: Yes Number of Cigarettes Smoked Daily: 10 Information on smoking cessation initiated: No 'Breaking Loose' booklet given: 09/01/16 Hx Alcohol Use: No Drug/Substance Use Hx: Yes (h/o heroin abuse) Substance Use Type: Heroin Hx Substance Use Treatment: Yes (Last detox was here in 2014) <Vy Westfall - Last Filed: 09/05/16 18:35> <Gregoria Westbrook - Last Filed: 09/08/16 15:43> - Past Medical History Allergies/Adverse Reactions: Allergies Allergy/AdvReac Type Severity Reaction Status Date / Time No Known Allergies Allergy Verified 09/04/16 16:17 Home Medications: Ambulatory Orders Albuterol Sulfate Inhaler - [Ventolin HFA Inhaler -] 2 inh PO Q4H PRN 08/06/14 Budesonide/Formeterol Fumarate [SYMBICORT 160/4.5mcg -] 1 inh PO BID 08/06/14 Aspirin [ASA -] 81 mg PO DAILY 09/01/16 Levofloxacin [Levaquin] 500 mg PO DAILY #14 tablet 09/04/16 Metronidazole [Flagyl -] 500 mg PO DAILY #14 tablet 09/04/16 Abd/GI Specific PMHX - Complaint Specific PMHX Hepatitis: No Pancreatitis: No <AlbanianLucíaHaleyMarco - Last Filed: 09/05/16 18:35> Review of Systems - Review of Systems Constitutional: No: Chills, Fever ABD/GI: Yes: Nausea, Vomiting, Abdominal cramping. No: Diarrhea : No: Dysuria <AlbanianLauraKareen - Last Filed: 09/05/16 18:35> *Physical Exam - Vital Signs Last Vital Signs Temp Pulse Resp BP Pulse Ox 98.1 F 61 17 155/84 98 09/04/16 16:15 09/04/16 16:15 09/04/16 16:15 09/04/16 16:15 09/04/16 16:15 - Physical Exam General Appearance: Yes: Appropriately Dressed, Moderate Distress HEENT: positive: Normal Voice Neck: positive: Supple Respiratory/Chest: positive: Lungs Clear, Normal Breath Sounds. negative: Respiratory Distress Cardiovascular: positive: Regular Rate, S1, S2 Gastrointestinal/Abdominal: positive: Normal Bowel Sounds, Tender (diffusely), Soft. negative: Distended, Guarding, Rebound Musculoskeletal: negative: CVA Tenderness Extremity: positive: Normal Inspection Integumentary: positive: Dry, Warm Neurologic: positive: Fully Oriented, Alert, Normal Mood/Affect <AlbanianVy - Last Filed: 09/05/16 18:35> - Vital Signs Last Vital Signs Temp Pulse Resp BP Pulse Ox 98.1 F 91 H 18 107/64 95 09/04/16 19:33 09/04/16 19:33 09/04/16 19:33 09/04/16 19:33 09/04/16 19:33 <Gregoria Westbrook - Last Filed: 09/08/16 15:43> ED Treatment Course - LABORATORY CBC & Chemistry Diagram: 09/04/16 16:30 09/04/16 16:30 - RADIOLOGY Radiology Studies Ordered: Category Date Time Status ABDOMEN & PELVIS CT WITH CONTR [CT] Stat CT Scan 09/04/16 16:19 Ordered <Vy Westfall - Last Filed: 09/05/16 18:35> - LABORATORY CBC & Chemistry Diagram: 09/04/16 16:30 09/04/16 16:30 - ADDITIONAL ORDERS Additional order review: 09/04/16 16:30 RBC 5.26 MCV 88.8 MCHC 32.2 RDW 14.2 MPV 8.7 Neutrophils % 79.4 Lymphocytes % 17.8 Monocytes % 2.2 L Eosinophils % 0.1 Basophils % 0.5 - Medications Given in the ED: ED Medications Discontinued Medications Generic Name Dose Route Start Last Admin Trade Name Callie PRN Reason Stop Dose Admin Sodium Chloride 1,000 mls @ 1,000 mls/hr 09/04/16 16:20 09/04/16 16:43 Normal Saline - IV 09/04/16 17:19 1,000 mls/hr ASDIR STA Administration Levofloxacin 500 mg 09/05/16 10:00 09/04/16 20:21 Levaquin PO 500 mg DAILY RUBIO Administration Metronidazole 500 mg 09/04/16 20:03 09/04/16 20:21 Flagyl - PO 09/04/16 20:04 500 mg ONCE ONE Administration Morphine Sulfate 4 mg 09/04/16 16:20 09/04/16 16:43 Morphine Injection - IVPUSH 09/04/16 16:21 4 mg ONCE ONE Administration Ondansetron HCl 4 mg 09/04/16 16:20 09/04/16 16:43 Zofran Injection IVPUSH 09/04/16 16:21 4 mg ONCE ONE Administration <Gregoria Westbrook - Last Filed: 09/08/16 15:43> Medical Decision Making - Medical Decision Making 09/04/16 16:21 61-year-old male history of asthma, BPH, sciatica, polysubstance abuse including heroin, hep C, endorses history of recurrent colitis w/ 2 admissions in [place] as per patient, no abdominal surgeries, here with diffuse abdominal pain with numerous episodes of non-bilious, non-bloody, nausea, vomiting that started this a.m. States symptoms similar to his colitis. Denies any diarrhea , fever or chills. See exam R/o recurrent colitis -pain control -zofran -IVF -labs -CT 09/04/16 16:23 <Vy Westfall - Last Filed: 09/05/16 18:35> *DC/Admit/Observation/Transfer <Vy Westfall - Last Filed: 09/05/16 18:35> - Attestations Physician Attestion: I reviewed the case with the mid-level practitioner and agree with the mid- level practitioner's assessment, diagnosis and disposition. <Gregoria Westbrook - Last Filed: 09/08/16 15:43> Diagnosis at time of Disposition: Colitis - Discharge Dispostion Disposition: I.P. ALCOHOL/SUBS ABUSE REHAB Condition at time of disposition: Stable - Prescriptions Prescriptions: Metronidazole [Flagyl -] 500 mg PO DAILY #14 tablet Levofloxacin [Levaquin] 500 mg PO DAILY #14 tablet - Referrals Referrals: Chelita Summers MD [Staff Physician] - - Patient Instructions Printed Discharge Instructions: DI for Colitis Additional Instructions: Increase fluids Tylenol as needed for pain Rx: Levaquin 500mg 1 tablet daily Rx: Flagyl 500mg 1 tablet twice a day Follow up with the heater mechanic Return to the Er for severe/persistent/worsening symptoms
[2016-09-04 16:29] VITALS: TEMP 98.1; BMI 19.6
[2016-09-04] MEDS ORDERED: morphine CARPU-JECT 4 MG/1 ML DISP.SYRIN ONE (16:32)
[2016-09-04] MEDS ORDERED: ONDANSETRON 4 MG/2 ML VIAL ONE (16:33)
[2016-09-04 17:08] LABS: BASOPHIL 0.5 % (0-2.0); EOSINOPHIL 0.1 % (0-4.5); MCH 28.5 pg (25.7-33.7); MCHC 32.2 g/dl (32.0-35.9); MEAN CELL VOLUME 88.8 fl (80-96); MEAN PLT VOLUME 8.7 fl (7.5-11.1); NEUTROPHILS 79.4 % (42.8-82.8); PLATELET COUNT 245 K/MM3 (134-434); RDW 14.2 % (11.9-15.9); WHITE BLOOD COUNT 6.9 K/mm3 (4.0-10.0)
[2016-09-04 17:55] LABS: PLATELET ESTIMATE ADEQUATE (NORMAL)
[2016-09-04 17:59] LABS: ALBUMIN 3.8 g/dl (3.4-5.0); ANION GAP 8 (8-16); CALCIUM 9.2 mg/dL (8.5-10.1); CO2 26 mmol/L (21-32); CREATININE 0.8 mg/dL (0.7-1.3); GLUCOSE,RANDOM 121 mg/dL (74-106); SGOT/AST 85 U/L (15-37); SGPT/ALT 89 U/L (12-78)
[2016-09-04 18:01] LABS: ALK PHOS 82 U/L (45-117); BILIRUBIN,TOTAL 0.5 mg/dL (0.2-1.0); TOT PROT 7.9 g/dl (6.4-8.2)
[2016-09-04 18:58] LABS: URINE APPEARANCE CLEAR; URINE BILIRUBIN NEGATIVE (NEGATIVE); URINE BLOOD NEGATIVE (NEGATIVE); URINE COLOR YELLOW; URINE GLUCOSE (UA) NEGATIVE (NEGATIVE); URINE KETONE NEGATIVE (NEGATIVE); URINE LEUK ESTERASE NEGATIVE (NEGATIVE); URINE NITRITE NEGATIVE (NEGATIVE); URINE PROTEIN NEGATIVE (NEGATIVE); URINE UROBILINOGEN NEGATIVE mg/dL (0.2-1.0)
[2016-09-04 19:34] VITALS: BP 107/64; PULSE 91
--- NOTE | 2016-09-04 20:00 | PDOC ---
History of Present Illness - General Chief Complaint: Pain Stated Complaint: Abdominal pain, N/V/D Time Seen by Provider: 09/04/16 16:02 - History of Present Illness Initial Comments: 09/04/16 21:28 Past History - Past Medical History Allergies/Adverse Reactions: Allergies Allergy/AdvReac Type Severity Reaction Status Date / Time No Known Allergies Allergy Verified 09/04/16 16:17 Home Medications: Ambulatory Orders Albuterol Sulfate Inhaler - [Ventolin HFA Inhaler -] 2 inh PO Q4H PRN 08/06/14 Budesonide/Formeterol Fumarate [SYMBICORT 160/4.5mcg -] 1 inh PO BID 08/06/14 Aspirin [ASA -] 81 mg PO DAILY 09/01/16 Levofloxacin [Levaquin] 500 mg PO DAILY #14 tablet 09/04/16 Metronidazole [Flagyl -] 500 mg PO DAILY #14 tablet 09/04/16 Anemia: No Asthma: Yes Cancer: No Cardiac Disorders: No CVA: No COPD: No CHF: No Dementia: No Diabetes: No GI Disorders: Yes (colitis) Disorders: No HTN: No Hypercholesterolemia: No Kidney Stones: No Liver Disease: No Suicide Attempt (Hx): No Seizures: No Thyroid Disease: No Other medical history: h/o heroin abuse - Surgical History Abdominal Surgery: No Appendectomy: No Cardiac Surgery: No Cholecystectomy: No Lung Surgery: No Neurologic Surgery: No Orthopedic Surgery: Yes (Tibia fx repair in 2013; tonsillectomy at 6 y.o. ) - Reproductive History Testicular Surgery: No - Psycho/Social/Smoking Cessation Hx Anxiety: No Suicidal Ideation: No Smoking History: Current some day smoker Have you smoked in the past 12 months: Yes Number of Cigarettes Smoked Daily: 10 Information on smoking cessation initiated: No 'Breaking Loose' booklet given: 09/01/16 Hx Alcohol Use: No Drug/Substance Use Hx: Yes (h/o heroin abuse) Substance Use Type: Heroin Hx Substance Use Treatment: Yes (Last detox was here in 2014) *Physical Exam - Vital Signs Last Vital Signs Temp Pulse Resp BP Pulse Ox 98.1 F 91 H 18 107/64 95 09/04/16 19:33 09/04/16 19:33 09/04/16 19:33 09/04/16 19:33 09/04/16 19:33 ED Treatment Course - LABORATORY CBC & Chemistry Diagram: 09/04/16 16:30 09/04/16 16:30 - ADDITIONAL ORDERS Additional order review: Laboratory Results 09/04/16 16:30 Sodium 141 Potassium 4.3 Chloride 107 Carbon Dioxide 26 Anion Gap 8 BUN 12 Creatinine 0.8 Creat Clearance w eGFR > 60 Random Glucose 121 H D Calcium 9.2 Total Bilirubin 0.5 D AST 85 H ALT 89 H Alkaline Phosphatase 82 Total Protein 7.9 Albumin 3.8 09/04/16 16:30 RBC 5.26 MCV 88.8 MCHC 32.2 RDW 14.2 MPV 8.7 Neutrophils % 79.4 Lymphocytes % 17.8 Monocytes % 2.2 L Eosinophils % 0.1 Basophils % 0.5 - Medications Given in the ED: ED Medications Discontinued Medications Generic Name Dose Route Start Last Admin Trade Name Jermainq PRN Reason Stop Dose Admin Sodium Chloride 1,000 mls @ 1,000 mls/hr 09/04/16 16:20 09/04/16 16:43 Normal Saline - IV 09/04/16 17:19 1,000 mls/hr ASDIR STA Administration Morphine Sulfate 4 mg 09/04/16 16:20 09/04/16 16:43 Morphine Injection - IVPUSH 09/04/16 16:21 4 mg ONCE ONE Administration Ondansetron HCl 4 mg 09/04/16 16:20 09/04/16 16:43 Zofran Injection IVPUSH 09/04/16 16:21 4 mg ONCE ONE Administration *DC/Admit/Observation/Transfer Diagnosis at time of Disposition: Colitis - Discharge Dispostion Disposition: HOME Condition at time of disposition: Stable Admit: No - Prescriptions Prescriptions: Metronidazole [Flagyl -] 500 mg PO DAILY #14 tablet Levofloxacin [Levaquin] 500 mg PO DAILY #14 tablet - Referrals Referrals: Chelita Summers MD [Staff Physician] - - Patient Instructions Printed Discharge Instructions: DI for Colitis Additional Instructions: Increase fluids Tylenol as needed for pain Rx: Levaquin 500mg 1 tablet daily Rx: Flagyl 500mg 1 tablet twice a day Follow up with the animal chiropractor Return to the Er for severe/persistent/worsening symptoms Progress Note - Progress Note Progress Note: CAT scan of the abdomen and pelvis with by mouth and IV contrast shows acute nonspecific left-sided colitis
[2016-09-04] MEDS ORDERED: metroNIDAZOLE 250 MG TABLET PO ONE (20:03)
[2016-09-04] MEDS ORDERED: LEVOFLOXACIN 500 MG TABLET (FP) ONE (20:07)
[2016-09-04] MEDS ORDERED: metroNIDAZOLE 250 MG TABLET ONE (20:07)
[2016-09-04] MEDS ORDERED: ONDANSETRON 4 MG TABLET PO ONE (21:28)
[2016-09-04] MEDS ORDERED: ONDANSETRON *ODT* 4 MG TABLET ONE (23:12)
[2016-09-05] MEDS ORDERED: LEVOFLOXACIN 750 MG TABLET PO SCH (10:00)
--- NOTE | 2016-09-09 12:56 | EKG ---
Test Reason : Blood Pressure : / mmHG Vent. Rate : 062 BPM Atrial Rate : 062 BPM P-R Int : 170 ms QRS Dur : 092 ms QT Int : 438 ms P-R-T Axes : 080 076 069 degrees QTc Int : 444 ms NORMAL SINUS RHYTHM POSSIBLE LEFT ATRIAL ENLARGEMENT BORDERLINE ECG WHEN COMPARED WITH ECG OF 01-SEP-2016 19:22, NO SIGNIFICANT CHANGE WAS FOUND Confirmed by CALLI GARCIA, ANTONIO ([id number]) on 09/09/2016 12:55:50 PM Referred By: Confirmed By:ANTONIO MCCURDY MD
== END 2016-09-04 23:12 | disposition other institution (70) ==
LOC: JER 15:58
PROC: 3E033NZ Introduction of Analgesics, Hypnotics, Sedatives into Peripheral Vein, Percutaneous Approach (ICD-10-PCS; principal; 2016-09-04)
PROC: 3E0337Z Introduction of Electrolytic and Water Balance Substance into Peripheral Vein, Percutaneous Approach (ICD-10-PCS; 2016-09-04)
PROC: 3E033GC Introduction of Other Therapeutic Substance into Peripheral Vein, Percutaneous Approach (ICD-10-PCS; 2016-09-04)
DX: K52.9 Noninfective gastroenteritis and colitis, unspecified (principal)
CPT/HCPCS: 36415; 74177-TC; 80053; 81003; 85025; 93005; 93010; 96361; 96374; 96375; 99282-25